=== PATIENT | male | born 1970 | race Caucasian/White ===

== ENCOUNTER → 2018-03-16 | Outpatient (CLI) | payer OTHER | LOC: BMCIMAGING 11:28 | PROVIDERS: ATTEND Emergency Medicine | DX: M25.551 Pain in right hip (principal) ==

== ENCOUNTER → 2018-04-19 | Outpatient (CLI) | payer OTHER | LOC: FIMAGING 14:28 | DX: Z03.89 Encounter for observation for other suspected diseases and conditions ruled out (principal); Z96.89 Presence of other specified functional implants ==